=== PATIENT | male | born 1985 | race African-American/Black ===

== ENCOUNTER 2017-04-26 16:40 | Emergency (ER) | payer MEDICAID ==
[2017-04-26 16:44] VITALS: BP 165/97; BMI 28.5
--- NOTE | 2017-04-26 17:05 | DR.GENAD ---
HPI - PCP Primary Care Physician: NFD - Complaint/Symptoms Chief Complaint Doctors Comments: Patient admits to nausea and vomiting x 2. Headache frontal throbbing, sharp. Denies history of migraines. Chief Complaint:: PATIENT HAS BEEN THROWING UP AND NAUSEOUS SINCE YESTERDAY, AND HAS A BAD HEADACHE. UNABLE TO HOLD ANYTHING DOWN TODAY. - Source History Provided: Patient - Mode of Arrival Mode of Arrival: Ambulatory - Timing Onset of Chief Complaint: 04/26/17 PMH - PMH Past Medical History: No Past Surgical History: No Surgical History: No History - Family History History of Family Medical Conditions: Yes Family Medical History: Diabetes Mellitus, Hypertension - Social History Does patient currently use any type of tobacco product: Yes Have you used tobacco products in the last 12 months: Yes Type of Tobacco Use: Cigarettes Does any household member use tobacco: No Alcohol Use: None Do you use any recreational Drugs:: No Lives With: Family Lives Where: Home - infectious screening In the last 2 months have you had wt loss of >10#?: NO Have you had fever, night sweats or hemotysis?: No Have you traveled outside the country in the last 6 months?: No Isolation: Standard ROS - Review of Systems Constitutional: No Symptoms Reported Eyes: No Symptoms Reported ENTM: No Symptoms Reported Respiratoy: No Symptoms Reported Cardiovascular: No Symptoms Reported Gastrointestinal/Abdominal: No Symptoms Reported Genitourinary: No Symptoms Reported Neurological: No Symptoms Reported Musculoskeletal: No Symptoms Reported Integumentary: No Symptoms Reported Hematologic/Lymphatic: No Symptoms Reported Endocrine: No Symptoms Reported Psychiatric: No Symptoms Reported All Other Systems: Reviewed and Negative PE - Vital Signs Vitals: Temperature 98.2 F Pulse Rate 82 Respiratory Rate 20 Blood Pressure [Left Arm] 140/93 Blood Pressure 165/97 O2 Sat by Pulse Oximetry 96 - General Limitations: No Limitations General Appearance: Alert, In No Apparent Distress - Head Head Exam: Normal Inspection, Atraumatic - Eyes Eye exam: Normal Appearance, PERRL, EOMI - ENT ENT Exam: Normal Exam External Ear Exam: Normal External Inspection TM/Canal Exam: Bilateral Normal Nose Exam: Normal Nose Exam Mouth Exam: Normal Inspection Throat Exam: Normal Inspection - Neck Neck Exam: Normal Inspection, Full ROM - Chest Chest Inspection: Normal Inspection - Respiratory Respiratory Exam: Normal Lung Sounds Bilat Respiratory Exam: Bilateral Clear to Auscultation - Cardiovascular Cardiovascular Exam: Regular Rate, Normal Rhythm - Abdominal Exam Abdominal Exam: Normal Inspection, Normal Bowel Sounds Abdominal Tenderness: negative: RUQ, RLQ, LUQ, LLQ, Epigastrium, Suprapubic, Diffuse, Mild, Moderate, Severe, Other - Extremities Extremities Exam: Normal Inspection, Full ROM - Back Back Exam: Normal Inspection - Neurologic Neurological Exam: Alert, Oriented X3, CN II-XII Intact - Psychiatric Psychiatric Exam: Normal Affect - Skin Skin Exam: Warm, Dry, Intact - Diagnosis Discharge Problem: Nausea Headache Qualifiers: Headache type: unspecified Headache chronicity pattern: acute headache Intractability: not intractable Qualified Code(s): R51 - Headache - Discharge Plan Condition: Stable - Follow ups/Referrals Follow ups/Referrals: NFD,None [Primary Care Provider] - 3 days - Instructions
[2017-04-26] MEDS ORDERED: TORADOL 60 MG VIAL IM ONE (17:06)
[2017-04-26] MEDS ORDERED: ZOFRAN SYRUP 4 MG UDC PO ONE (17:07)
[2017-04-26] MEDS ORDERED: ZOFRAN SYRUP 4 MG UDC ONE (17:08)
[2017-04-26] MEDS ORDERED: TORADOL 60 MG VIAL ONE (17:08)
== END 2017-04-26 17:49 | disposition home or self-care (01) ==
LOC: ER 16:54
DX: R11.0 Nausea (principal); R51 Headache
CPT/HCPCS: 96372; 99282; J1885; Q0162

== ENCOUNTER 2017-09-14 11:21 | Emergency (ER) | payer SELFPAY ==
[2017-09-14 11:37] VITALS: BP 157/97; BMI 28.5
[2017-09-14] MEDS ORDERED: PHENERGAN INJ 25 MG IM ONE (12:46)
--- NOTE | 2017-09-14 12:49 | DR.N/VMALE ---
HPI - Time Seen Time seen: 12:30 - Primary Care Physician Primary Care Physician: ji - HPI Comment HPI Comment: nausea + vomitting x about 3 days now. He vomitted so much yesterday and thrice so far today. He denies abdominal pain. He has no fever. He states he has been in contact with family members similarly ill. He has vomitted quite a lot yesterday and 3 times so far today. his secondary complain is of skeletal pain most notably in back. the pain is along the whole paravertebral muscle from top to bottom. - Complaints Chief Complaint:: n/v-headache x 2-3 days-says his daughter had the same illness a few days ago - Reviewed Nurses Notes Reviewed: Yes - Source History Provided: Patient - Mode of Arrival Mode of Arrival: Ambulatory - Timing Onset of Chief Complaint: 09/11/17 - Context Onset: Spontaneous Recent: None Possible Ingestion: Unknown PMH - PMH Past Medical History: Yes Past Medical History: Hypertension Past Surgical History: No Surgical History: No History - Family History History of Family Medical Conditions: No Family Medical History: Diabetes Mellitus, Hypertension - Social History Do you use any recreational Drugs:: No - infectious screening In the last 2 months have you had wt loss of >10#?: NO Have you had fever, night sweats or hemotysis?: No Have you traveled outside the country in the last 6 months?: No Isolation: Standard ROS - Review of Systems Constitutional: No Symptoms Reported Eyes: No Symptoms Reported ENTM: No Symptoms Reported Respiratoy: No Symptoms Reported Cardiovascular: No Symptoms Reported Gastrointestinal/Abdominal: Nausea, Vomiting Genitourinary: No Symptoms Reported Neurological: No Symptoms Reported Musculoskeletal: Back Pain Integumentary: No Symptoms Reported Hematologic/Lymphatic: No Symptoms Reported Endocrine: No Symptoms Reported Psychiatric: No Symptoms Reported All Other Systems: Reviewed and Negative PE - Vital Signs Vitals: Temperature 98.6 F Pulse Rate 79 Respiratory Rate 16 Blood Pressure [Left Arm] 140/93 Blood Pressure 157/97 O2 Sat by Pulse Oximetry 99 - General Limitations: No Limitations General Appearance: Alert, In No Apparent Distress - Head Head Exam: Normal Inspection - Eyes Eye exam: Normal Appearance - ENT ENT Exam: Normal Exam - Neck Neck Exam: Normal Inspection - Chest Chest Inspection: Normal Inspection - Respiratory Respiratory Exam: Normal Lung Sounds Bilat - Cardiovascular Cardiovascular Exam: Regular Rate, Normal Rhythm - Abdominal Exam Abdominal Exam: Normal Inspection, Normal Bowel Sounds, Soft - Extremities Extremities Exam: Normal Inspection - Back Back Exam: Normal Inspection, Full ROM - Neurologic Neurological Exam: Alert, Oriented X3, CN II-XII Intact - Psychiatric Psychiatric Exam: Normal Affect, Normal Mood - Skin Skin Exam: Warm, Dry, Intact, Normal Color Course - Reevaluation 1st: Improved ROR - Labs Reviewed Result Diagrams: 09/14/17 12:54 09/14/17 12:54 Laboratory: WBC 5.8 X10^3/uL (3.6-10.0) 09/14/17 12:54 RBC 5.63 X10^6/uL (4.7-6.0) 09/14/17 12:54 Hgb 13.9 g/dL (13.5-18.0) 09/14/17 12:54 Hct 42.9 % (42.0-54.0) 09/14/17 12:54 MCV 76.1 fL (80.0-100.0) L 09/14/17 12:54 MCH 24.7 pg (27.0-34.0) L 09/14/17 12:54 MCHC 32.4 g/dL (33.0-35.0) L 09/14/17 12:54 RDW 14.5 % (11.6-16.5) 09/14/17 12:54 Plt Count 218 X10^3/uL (150.0-450.0) 09/14/17 12:54 Plt Count Comment Adequate (ADEQUATE) 09/14/17 12:54 MPV 7.2 fL (7.4-11.0) L 09/14/17 12:54 Neut % 44.8 % (42.0-75.0) 09/14/17 12:54 Lymph % 38.3 % (21.0-51.0) 09/14/17 12:54 Haskell % 9.7 % (0.0-13.0) 09/14/17 12:54 Eos % 6.5 % (0.9-2.9) H 09/14/17 12:54 Baso % 0.7 % (0.2-1.0) 09/14/17 12:54 Neut # 2.6 x10^3/uL (2.2-4.8) 09/14/17 12:54 Lymph # 2.2 X10^3/uL (1.3-2.9) 09/14/17 12:54 Haskell # 0.6 x10^3/uL (0.3-0.8) 09/14/17 12:54 Eos # 0.4 x10^3/uL (0.0-0.2) H 09/14/17 12:54 Baso # 0.0 X10^3/uL (0.0-0.1) 09/14/17 12:54 Absolute Nucleated RBC 0.1 /100WBC 09/14/17 12:54 Plt Morphology Comment Normal (NORMAL) 09/14/17 12:54 RBC Morphology Normal (NORMAL) 09/14/17 12:54 Sodium 140 mmol/L (136-145) 09/14/17 12:54 Corrected Sodium TNP 09/14/17 12:54 Potassium 3.8 mmol/L (3.5-5.1) 09/14/17 12:54 Chloride 106 mmol/L (98-107) 09/14/17 12:54 Carbon Dioxide 27.5 mmol/L (21-32) 09/14/17 12:54 BUN 7 mg/dL (7-18) 09/14/17 12:54 Creatinine 0.98 mg/dL (0.70-1.30) 09/14/17 12:54 Est GFR (MDRD) Af Amer > 60 (>60) 09/14/17 12:54 Est GFR (MDRD) Non-Af > 60 (>60) 09/14/17 12:54 Glucose 95 mg/dL (65-99) 09/14/17 12:54 Calcium 8.8 mg/dL (8.5-10.1) 09/14/17 12:54 Corrected Calcium TNP 09/14/17 12:54 Total Bilirubin 0.40 mg/dL (0.2-1.0) 09/14/17 12:54 AST 19 Units/L (15-37) 09/14/17 12:54 ALT 21 Units/L (12-78) 09/14/17 12:54 Alkaline Phosphatase 70 Units/L (46-116) 09/14/17 12:54 Total Protein 7.7 g/dL (6.4-8.2) 09/14/17 12:54 Albumin 4.1 g/dL (3.4-5.0) 09/14/17 12:54 Globulin 3.6 g/dL (2.5-4.5) 09/14/17 12:54 Albumin/Globulin Ratio 1.1 Ratio (1.1-2.1) 09/14/17 12:54 - Diagnosis Discharge Problem: Nausea and vomiting in adult patient, Myalgia - Discharge Plan Disposition: HOME, SELF-CARE Condition: Stable - Follow ups/Referrals Follow ups/Referrals: NFD,None [Primary Care Provider] - 3 days - Instructions
[2017-09-14] MEDS ORDERED: PHENERGAN INJ 25 MG ONE (12:54)
[2017-09-14 13:15] LABS: BASOPHILS % (AUTO) 0.7 % (0.2-1.0); EOSINOPHILS # (AUTO) 0.4 x10^3/uL (0.0-0.2); EOSINOPHILS % (AUTO) 6.5 % (0.9-2.9); HEMATOCRIT 42.9 % (42.0-54.0); HEMOGLOBIN 13.9 g/dL (13.5-18.0); LYMPHOCYTES # (AUTO) 2.2 X10^3/uL (1.3-2.9); LYMPHOCYTES % (AUTO) 38.3 % (21.0-51.0); MEAN CORPUSCULAR HEMOGLOBIN 24.7 pg (27.0-34.0); MEAN CORPUSCULAR HGB CONC 32.4 g/dL (33.0-35.0); MEAN CORPUSCULAR VOLUME 76.1 fL (80.0-100.0); MEAN PLATELET VOLUME 7.2 fL (7.4-11.0); MONOCYTES # (AUTO) 0.6 x10^3/uL (0.3-0.8); MONOCYTES % (AUTO) 9.7 % (0.0-13.0); NEUTROPHILS # (AUTO) 2.6 x10^3/uL (2.2-4.8); NEUTROPHILS % (AUTO) 44.8 % (42.0-75.0); PLATELET COUNT 218 X10^3/uL (150.0-450.0); RED BLOOD COUNT 5.63 X10^6/uL (4.7-6.0); RED CELL DISTRIBUTION WIDTH 14.5 % (11.6-16.5); WHITE BLOOD COUNT 5.8 X10^3/uL (3.6-10.0)
[2017-09-14 13:31] LABS: PLATELET MORPHOLOGY COMMENT NORMAL (NORMAL)
[2017-09-14 13:41] LABS: ALANINE AMINOTRANSFERASE 21 Units/L (12-78); ALBUMIN 4.1 g/dL (3.4-5.0); ALKALINE PHOSPHATASE 70 Units/L (46-116); ASPARTATE AMINO TRANSFERASE 19 Units/L (15-37); BLOOD UREA NITROGEN 7 mg/dL (7-18); CALCIUM 8.8 mg/dL (8.5-10.1); CARBON DIOXIDE 27.5 mmol/L (21-32); CHLORIDE 106 mmol/L (98-107); CREATININE 0.98 mg/dL (0.70-1.30); SODIUM 140 mmol/L (136-145); TOTAL PROTEIN 7.7 g/dL (6.4-8.2); eGFR BLACK RACES > 60 (>60); eGFR NON BLACK RACES > 60 (>60)
== END 2017-09-14 14:26 | disposition home or self-care (01) ==
LOC: ER 11:31
DX: M79.1 Myalgia (principal)
CPT/HCPCS: 36415; 80053; 85025; 96372; 99282; J2550